=== PATIENT | female | born 1940 | race Caucasian/White ===

== ENCOUNTER 2024-01-26 09:03 | Day surgery (SDC) | payer MEDICARE, BC, SELFPAY ==
[2024-01-26] VITALS (21 sets, daily range): BP systolic 16–192; BP diastolic 50–119; BMI 27.8
[2024-01-26 09:47] LABS: Hematocrit 38.3 % (37.0-47.0); Hemoglobin 12.3 g/dL (12.0-16.0); Mean Corp Hgb Conc. 32.1 g/dL (33.0-37.0); Mean Corpuscular Hgb 28.9 pg (27.0-31.0); Mean Corpuscular Volume 90.1 fL (81.0-99.0); Mean Platelet Volume 11.5 fL (7.4-10.4); Platelet Count 183 10^3/uL (130-400); Red Blood Cell Count 4.25 10^6/uL (4.20-5.40); Red Cell Dist. Width 12.9 % (11.5-14.5); White Blood Cell Count 7.1 10^3/uL (4.8-10.8)
[2024-01-26 09:53] LABS: Blood Urea Nitrogen 15 mg/dl (7-17); Calcium 9.7 mg/dl (8.4-10.2); Carbon Dioxide 30 mmol/L (22-30); Chloride 103 mmol/L (98-107); Estimated Creatinine Clearance 59 ml/min; Glucose 100 mg/dl (70-99); Potassium 4.1 mmol/L (3.5-5.1); Sodium 143 mmol/L (135-145); eGFR > 60.00
[2024-01-26 09:57] LABS: INR 1.12; PT 14.2 Sec (11.4-14.6)
[2024-01-26 09:58] LABS: APTT 29.2 Sec (23.4-35.0)
--- NOTE | 2024-01-26 10:08 | W.SUR.PREOP ---
Pre-Operative Surgical Note
-
I have examined this patient prior to the performance of the scheduled procedure.
The patient's condition is unchanged from the time of the current History and
Physical and the patient is able to undergo the scheduled procedure.
[2024-01-26] MEDS: NSS 220 ML IV (10:13)
--- NOTE | 2024-01-26 11:31 | W.SUR.POST ---
Surgical Immediate Post Op
Note
Pre Op Diagnosis: PAD
Post Op Diagnosis: Same
Procedure Performed: Left lower extremity arteriogram, popliteal artery stenting x 2, long segment balloon angioplasty posterior tibial
Primary Surgeon: Damian
Anesthesia: Local and sedation
Estimated Blood Loss: Less than 2 cc
Fluids: See anesthesia flowsheet
Drains/Shunts: None
Specimens/Cultures: None
Doppler/Duplex/Angio (Y/N): Y
Complications: None
Operative Findings: Severe popliteal stenosis x 2 and posterior tibial artery segmental occlusion
[2024-01-26] MEDS: NSS 1000 IV (12:22)
[2024-01-26] MEDS: PLAVIX 300 MG PO (13:06)
--- NOTE | 2024-01-26 13:24 | OR.RPT ---
Operative Report
Operative Report
PROCEDURE DATE: 01/26/2024
Preoperative diagnosis: Ischemic rest pain left foot
Postoperative diagnosis: Same
Procedure:
1. Duplex assisted right common femoral artery cannulation.
2. Aortogram and pelvic angiogram.
3. Left lower extremity arteriogram with third order vessel catheterization of left posterior tibial artery via right common femoral artery puncture.
4. Balloon angioplasty and stent placement of left superficial femoral and popliteal artery artery severe stenoses (1 in distal SFA, 1 and above-knee popliteal artery), using NextPage Zilver PTX 5 mm x 6 cm and a 5 mm x 4 mm stents.
5. Balloon angioplasty of long segment segmentally occluded/severely stenotic posterior tibial artery with 2.5 mm angioplasty balloon.
6. Right femoral angiogram and Perclose percutaneous closure right common femoral artery.
7. Supervision and interpretation.
Surgeon: Damian
Income Tax Expert: None
Complications: None
Anesthesia: Local, sedation
Fluoroscopy:
13.7 min
62 mGy
17.97 Gy.cm2
Indications for procedure:
Ischemic rest pain left foot. Brought for angiography. Risk/benefits/alternatives all fully discussed. Patient understood all wish to proceed.
Description of procedure:
Patient was identified, brought to the operating room. Placed on the table in the supine position. After the adequate administration of anesthesia, the patient was prepped and draped in the standard surgical fashion. A standard preoperative
timeout was undertaken and everybody was in agreement with the plan.
The right common femoral artery was accessed with a micropuncture kit under direct duplex ultrasound guidance. A 5 [place] sheath was then advanced over a 0.035 inch wire, and a hurst's hook catheter was advanced into the abdominal aorta.
Aortogram and pelvic angiogram was obtained. Findings as follows:
Infrarenal aorta: Patent distal infrarenal aorta with moderate atherosclerotic plaque but no significant stenosis.
Right common iliac artery: Patent with moderate eccentric atherosclerotic plaque but no significant stenosis.
Right external iliac artery: Patent with no significant stenosis.
Left common iliac artery: Patent with moderate eccentric calcified plaque but no significant stenosis. Mild ectasia in the distal common iliac artery.
Left external iliac artery: Patent with no significant stenosis.
Using a floppy angled hydrophilic wire, the left common femoral artery was cannulated and the catheter was advanced. Left lower extremity arteriogram was obtained. Findings as follows:
Common femoral artery: Patent with no significant stenosis.
Profunda femoris artery: Patent with no significant stenosis.
Superficial femoral artery: Patent with some luminal irregularities but no severe stenosis until the very distalmost SFA at the transition with the popliteal artery there was a severe string-like stenosis focally..
Popliteal artery: Beyond the distal SFA/proximal popliteal artery stenosis there was then an additional stenosis in the very distal above-knee popliteal artery with collateralization noted around it. It was a string-like stenosis. Imaging the
behind the knee popliteal artery proved to be very challenging due to the knee prosthetic. However in my best imaging I did not see any other stenosis. The below-knee popliteal artery was patent, slightly diminutive in size with some luminal
irregularity but no severe high-grade stenosis.
As far as the runoff, the anterior tibial artery was essentially occluded a few centimeters beyond its origin with no discernible reconstitution. Tibioperoneal trunk and peroneal artery appeared patent and the peroneal artery appeared to be the
dominant runoff vessel. The posterior tibial artery appeared proximally occluded and then segmental reconstitution throughout its course through the two thirds with areas of severe stenosis as well. Just above the ankle there was reconstitution of
the main posterior tibial artery giving rise to one of the plantar is on the foot.
At this point I selectively cannulated the superficial femoral artery and then exchanged for a Storq wire and an up and over 6 [place] sheath. The patient was given an appropriate dose of heparin. Next under roadmap assisted guidance with a
flopping of hydrophilic wire and a CXI catheter I was able to traverse the distal SFA and popliteal artery stenosis. I gained wire access into the posterior tibial artery below the knee. I then exchanged for a Storq wire and initially elected to
primarily stent to the distal SFA and above-knee popliteal artery stenoses. However the stent would not pass. Therefore I then exchanged out for a 4 mm angioplasty balloon and ballooned both of those stenoses with a 4 mm balloon. Next, I advanced
my 5 mm x 6 cm Zilver PTX (NextPage) stent to the above-knee popliteal artery the more distal stenosis. I then deployed this in the standard fashion. I then exchanged for a 5 mm x 4 cm stent (Cook Zilver PTX) which I deployed across the distal SFA
stenosis. I post angioplastied the stents with 5 mm angioplasty balloons. Completion angiogram demonstrated excellent result with complete resolution of stenosis and now much brisker flow into the runoff. Now I exchanged in the posterior tibial
artery for a Glidewire and a CXI catheter. I was able to pass my Glidewire into the distal posterior tibial artery, but could not advance my catheter into the very distal posterior tibial artery where the flow lumen had reconstituted to more
normal. However, I removed the Glidewire and then was able to use a 0.014 inch RETAIL BEAUT[employer]IST wire which passed right through into the distal PT. Next over this wire I used a 2.5 mm x 20 cm long angioplasty balloon and performed a couple overlapping
inflations of long segment posterior tibial artery. Completion angiogram now demonstrated an excellent result with complete resolution of any posterior tibial artery stenosis. There is brisk flow now as well to the foot. At this point is very
satisfied. I then withdrew my sheath to the right external iliac artery. Angiogram demonstrated good puncture in the right common femoral artery. At this point is very satisfied. I used a Perclose percutaneous suture to close the common femoral
artery. Hemostasis was fully achieved in the groin after manual pressure was also gently applied. The patient tolerated the procedure well. Upon completion she had a palpable left posterior tibial pulse at the ankle.
[2024-01-26] MEDS: COREG 25 MG PO (14:57)
[2024-01-26] MEDS: APRESOLINE 5 MG IV (16:14)
== END 2024-01-26 16:49 | disposition home or self-care (01) ==
LOC: CATH 09:03
PROVIDERS: ATTENDING PHYSICIAN Surgery Vascular Surgery; FAMILY PHYSICIAN Internal Medicine; OTHER PHYSICIAN Internal Medicine Cardiovascular Disease
DX: I70.222 Atherosclerosis of native arteries of extremities with rest pain, left leg (principal); I50.22 Chronic systolic (congestive) heart failure; I25.10 Atherosclerotic heart disease of native coronary artery without angina pectoris; E78.5 Hyperlipidemia, unspecified; Z86.73 Personal history of transient ischemic attack (TIA), and cerebral infarction without residual deficits
CPT/HCPCS: 37226; 37228; 75625; 75716; 76937; 80048; 85027; 85610; 85730; 86850; 86900; 86901; C1725; C1760; C1769; C1874; C1887; C1894; Q9967

== ENCOUNTER → 2024-02-25 09:09 | Outpatient (REF) | payer MEDICARE, BC, SELFPAY | LOC: RAD 09:09 | PROVIDERS: ATTENDING PHYSICIAN Surgery Vascular Surgery; FAMILY PHYSICIAN Internal Medicine | DX: I73.9 Peripheral vascular disease, unspecified (principal) | CPT/HCPCS: 93922; 93925 ==

== ENCOUNTER → 2024-03-02 14:26 | Outpatient (REF) | payer MEDICARE, BC, SELFPAY | LOC: HWRAD 14:26 | PROVIDERS: ATTENDING PHYSICIAN Registered Nurse; FAMILY PHYSICIAN Internal Medicine | DX: I73.9 Peripheral vascular disease, unspecified (principal) | CPT/HCPCS: 74174; Q9967 ==

== ENCOUNTER → 2024-05-24 10:26 | Outpatient (REF) | payer MEDICARE, BC, SELFPAY ==
[2024-05-24 15:51] LABS: % Basophils 0.5 % (0-2); % Eosinophils 3.2 % (0-6); % Immature Granulocytes 0.3 % (0-0.5); % Lymphocytes 18.9 % (20.5-51.1); % Monocytes 8.2 % (1.7-9.3); % Neutrophils 68.9 % (42.2-75.2); Absolute Eosinophils 0.2 10^3/uL (0-0.7); Absolute Lymphocytes 1.4 10^3/uL (1.2-3.4); Absolute Monocytes 0.6 10^3/uL (0.1-0.6); Absolute Neutrophils 5.1 10^3/uL (1.4-6.5); Hematocrit 38.3 % (37.0-47.0); Hemoglobin 12.1 g/dL (12.0-16.0); Mean Corp Hgb Conc. 31.6 g/dL (33.0-37.0); Mean Corpuscular Hgb 29.7 pg (27.0-31.0); Mean Corpuscular Volume 93.9 fL (81.0-99.0); Mean Platelet Volume 11.6 fL (7.4-10.4); Nucleated Red Blood Cells % 0 %; Platelet Count 196 10^3/uL (130-400); Red Blood Cell Count 4.08 10^6/uL (4.20-5.40); Red Cell Dist. Width 12.9 % (11.5-14.5); White Blood Cell Count 7.4 10^3/uL (4.8-10.8)
[2024-05-24 15:53] LABS: ALT (SGPT) 11 U/L (0-35); AST (SGOT) 22 U/L (14-36); Albumin 4.1 g/dl (3.5-5.0); Alkaline Phosphatase 54 U/L (38-126); Blood Urea Nitrogen 20 mg/dl (7-17); Calcium 9.5 mg/dl (8.4-10.2); Carbon Dioxide 30 mmol/L (22-30); Chloride 101 mmol/L (98-107); Glucose 95 mg/dl (70-99); HDL Cholesterol 52 mg/dl; Iron 75 ug/dl (37-170); LDL Cholesterol, Calculated 98 mg/dl; Potassium 4.2 mmol/L (3.5-5.1); Sodium 138 mmol/L (135-145); Total Bilirubin 0.8 mg/dl (0.2-1.3); Total Cholesterol 171 mg/dl (50-199); Total Protein 6.4 g/dl (6.3-8.2); Triglyceride 108 mg/dl (10-149); Very Low Density Lipoprotein 21 mg/dl (0-30); eGFR > 60.00
[2024-05-24 16:02] LABS: Percent Saturation 25 % (20-50); Total Iron Binding Capacity 293 ug/dl (265-497)
[2024-05-24 16:09] LABS: Vitamin D, 25-OH*** 21.7 ng/mL (30-80)
[2024-05-24 16:27] LABS: Ferritin 46.5 ng/ml (11.1-264.0)
== END ==
LOC: HWWDC 10:26
PROVIDERS: ATTENDING PHYSICIAN Internal Medicine
DX: E61.1 Iron deficiency (principal); E78.5 Hyperlipidemia, unspecified; E55.9 Vitamin D deficiency, unspecified; Z13.820 Encounter for screening for osteoporosis; Z78.0 Asymptomatic menopausal state; I25.10 Atherosclerotic heart disease of native coronary artery without angina pectoris
CPT/HCPCS: 36415; 77063; 77067; 77080; 80053; 80061; 82306; 82728; 83540; 83550; 85025; 86141

== ENCOUNTER → 2024-06-11 12:54 | Outpatient (REF) | payer MEDICARE, BC, SELFPAY | LOC: RAD 12:54 | PROVIDERS: ATTENDING PHYSICIAN Surgery Vascular Surgery; FAMILY PHYSICIAN Internal Medicine | DX: I73.9 Peripheral vascular disease, unspecified (principal); R60.0 Localized edema | CPT/HCPCS: 93922; 93925; 93971 ==

== ENCOUNTER 2024-06-25 06:12 | Inpatient (IN) | payer MEDICARE, BC, SELFPAY ==
[2024-06-21 10:21] VITALS: BMI 28.9
[2024-06-21 10:51] LABS: % Basophils 0.5 % (0-2); % Eosinophils 4.7 % (0-6); % Immature Granulocytes 0.5 % (0-0.5); % Monocytes 8.8 % (1.7-9.3); % Neutrophils 71.5 % (42.2-75.2); Absolute Eosinophils 0.3 10^3/uL (0-0.7); Absolute Lymphocytes 0.9 10^3/uL (1.2-3.4); Absolute Monocytes 0.5 10^3/uL (0.1-0.6); Absolute Neutrophils 4.4 10^3/uL (1.4-6.5); Hematocrit 34.9 % (37.0-47.0); Hemoglobin 11.2 g/dL (12.0-16.0); Mean Corp Hgb Conc. 32.1 g/dL (33.0-37.0); Mean Corpuscular Hgb 30.1 pg (27.0-31.0); Mean Corpuscular Volume 93.8 fL (81.0-99.0); Mean Platelet Volume 10.9 fL (7.4-10.4); Nucleated Red Blood Cells % 0 %; Platelet Count 164 10^3/uL (130-400); Red Blood Cell Count 3.72 10^6/uL (4.20-5.40); Red Cell Dist. Width 12.8 % (11.5-14.5); White Blood Cell Count 6.1 10^3/uL (4.8-10.8)
[2024-06-21 11:05] LABS: INR 1.02; PT 13.7 Sec (11.4-14.6)
[2024-06-21 12:12] LABS: Blood Urea Nitrogen 20 mg/dl (7-17); Calcium 9.2 mg/dl (8.4-10.2); Carbon Dioxide 27 mmol/L (22-30); Chloride 101 mmol/L (98-107); Estimated Creatinine Clearance 52 ml/min; Glucose 94 mg/dl (70-99); Potassium 4.4 mmol/L (3.5-5.1); Sodium 137 mmol/L (135-145); eGFR > 60.00
[2024-06-25] VITALS (31 sets, daily range): BP systolic 110–183; BP diastolic 51–103; BMI 29.2
[2024-06-25] MEDS: PERIDEX 0.12% ORAL RINSE 15 ML PO (06:46)
[2024-06-25] MEDS: BACTROBAN NASAL 1 GRAM NASAL (06:46)
[2024-06-25] MEDS: NSS 500 IV (06:46)
--- NOTE | 2024-06-25 09:46 | W.SUR.POST ---
Surgical Immediate Post Op
Note
Pre Op Diagnosis: PAD
Post Op Diagnosis: Same
Procedure Performed: Right femoral endarterectomy with saphenous vein patch
Primary Surgeon: Damian
Travel Pt: Elan BAER
Anesthesia: General
Estimated Blood Loss: 15 cc
Fluids: See anesthesia flowsheet
Drains/Shunts: None
Specimens/Cultures: Right femoral with left
Doppler/Duplex/Angio (Y/N): Y
Complications: None
Operative Findings: +1 DP and PT pulses
--- NOTE | 2024-06-25 10:30 | OR.RPT ---
Operative Report
Operative Report
PROCEDURE DATE: 06/25/2024
Preoperative diagnosis: Critical limb ischemia right lower extremity with severe ischemic rest pain, severe claudication.
Postoperative diagnosis: Same
Procedure: Right femoral endarterectomy with saphenous vein patch angioplasty.
Surgeon: Damian
Didactic Instructor: RISA Ansari, required for all aspects of procedure including assistance with traction/countertraction, following of suture line, assistance with closure.
Complications: None
Anesthesia: General
Indications for procedure:
Patient had prior undergone left lower extremity arteriogram for ischemic rest pain of the left foot. Perclose percutaneous suture closure was performed the right common femoral artery. When seen back in the office postoperative duplex that
demonstrated significant right common femoral artery stenosis. Initially she was asymptomatic, however this progressed. CT angiogram confirmed the stenosis. Focally there was a severe stenosis in the common femoral artery. Patient had developed
significant symptoms of ischemic rest pain. Therefore was brought for femoral endarterectomy. Risk/benefits/alternatives were also discussed. Patient understood all wished to proceed.
Description of procedure:
Patient was identified brought to the operating room placed on the table in supine position. After the adequate administration of anesthesia she was prepped and draped in the standard surgical fashion. A standard preoperative timeout was
undertaken and everybody was in agreement the plan. A transverse incision/oblique incision was made in the right groin (I elected to perform oblique incision rather than longitudinal given the focal nature of the common femoral issue). This was
carried through skin subcutaneous tissue. Any lymphatic crossing vessels with luis tissue was ligated between silk ties and divided. Identified the inguinal ligament and then carefully dissected the common femoral artery as it emerged from
underneath inguinal ligament. It was noted to be soft here and I carefully circumferentially dissected and passed a vessel loop around it. I then continued dissection down the common femoral artery. I could identify where the prior percutaneous
suture cinched down to the artery as there was heaped up scar tissue on the anterior lateral wall of the artery at that juncture. I continued to dissect distally on the artery until I got to the bifurcation (retractors were used to be able to
identify the bifurcation). I then carefully circumferentially dissected the SFA, and circumferentially dissected the profunda using exclusion technique. Vesseloops were passed around these which were double looped but not yet tightened. Now that
I had proximal and distal control, I then elected to isolate a segment of greater saphenous vein so as to use for a patch. A longitudinal incision was made in the proximal medial calf separately. This was carried through the skin and the patient's
tissue. Identified the greater saphenous vein and carefully dissected a suitable segment of approximately 6 to 8 cm, mobilizing it out of its bed. No branches were noted in that vicinity. Now, I gave the patient an appropriate dose of heparin
(approximately 100 units/kg). Now I clamped the proximal common femoral artery (of note there is a good pulsation there and it was soft. This was done with a Derra clamp. I then tightened my double Vesseloops on the SFA and profunda. I now
completely dissected the scarred in area where the percutaneous suture cinched the prior arterial closure site. There was a branch in that vicinity which was clipped and divided. Now I made an arteriotomy in the distal common femoral artery with
an 11 blade and extended approximately using a Vega scissor. I noted at the site of the percutaneous suture, there was heaped up thickened fibrotic tissue that nearly occluded the vessel or focally did occluded. There was no active acute thrombus
or clot. There was not a clear-cut problem with this suture grabbing the posterior wall. It was a little bit unclear what resulted in this thickened fibrotic reaction here. But perhaps a localized dissection then fibrosed over time. Regardless
at this point, I used a [place] to endarterectomized segment and locally endarterectomized out this thickened intima/fibrotic tissue. I was able to achieve clean endpoints proximally and distally. Satisfied with the endarterectomy and the endpoints
as well as the vessel lumen now, I now turned my attention to the saphenous vein again. I ligated approximately distally with heavy silk ties and clips. I transected approximately distally. I then filleted it. I then used it as a patch and sewed
a patch angioplasty using a running 5-0 Prolene suture. Prior to completing and tying down my suture line I backbled the soboba artery. I then completed and tied down my suture line after instilling heparinized saline. I then released flow in the
soboba arteries by releasing my clamps and Vesseloops. There is now excellent pulsatile flow in all 3 vessels (common femoral, profunda, SFA) and this was confirmed with Doppler. At this point is very satisfied. Both incision sites were irrigated
and full hemostasis was achieved. Protamine was given to reverse the heparin. I again examined the patch angioplasty site and it was noted to be fully hemostatic. At this point I satisfied. The oblique incision (arterial exposure site) was
closed in layers with 2-0 Vicryl to reapproximate the femoral sheath layer followed by Michel's fascia 2-0 running Vicryl suture layer. We then used 3-0 Vicryl deep dermal followed by 4 Monocryl subcuticular stitch. The greater saphenous vein
exposure site was similarly closed with a deeper layer of running 2-0 Vicryl suture followed by 3-0 Vicryl deep dermal layer followed by 4 Monocryl subcuticular stitch. Dermabond was applied. Dressings were applied. The patient tolerated
procedure well. She had an excellent dopplerable posterior tibial signal upon completion.
[2024-06-25 10:44] LABS: Hematocrit 33.7 % (37.0-47.0); Hemoglobin 10.9 g/dL (12.0-16.0); Mean Corp Hgb Conc. 32.3 g/dL (33.0-37.0); Mean Corpuscular Hgb 29.8 pg (27.0-31.0); Mean Corpuscular Volume 92.1 fL (81.0-99.0); Mean Platelet Volume 11.3 fL (7.4-10.4); Platelet Count 148 10^3/uL (130-400); Red Blood Cell Count 3.66 10^6/uL (4.20-5.40); Red Cell Dist. Width 12.6 % (11.5-14.5); White Blood Cell Count 5.4 10^3/uL (4.8-10.8)
[2024-06-25 10:49] LABS: INR 1.14; PT 14.9 Sec (11.4-14.6)
[2024-06-25 10:50] LABS: APTT 30.4 Sec (23.4-35.0)
[2024-06-25] MEDS: DILAUDID 0.25 MG IV (10:52)
[2024-06-25 10:58] LABS: Blood Urea Nitrogen 17 mg/dl (7-17); Calcium 8.5 mg/dl (8.4-10.2); Carbon Dioxide 28 mmol/L (22-30); Chloride 104 mmol/L (98-107); Estimated Creatinine Clearance 58 ml/min; Glucose 111 mg/dl (70-99); Potassium 3.6 mmol/L (3.5-5.1); Sodium 139 mmol/L (135-145); eGFR > 60.00
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
[2024-06-25] MEDS: NSS 1000 IV (12:01)
[2024-06-25] MEDS: ROXICODONE 5 MG PO ×2 (12:24→22:28)
--- NOTE | 2024-06-25 13:00 | PTCARENOTE ---
Received pt from PACU via bed.Pt is awake,alert.Conversation is appropriate.+ORTEGA.c/o back pain and right groin surgical site pain.Bedrest maintained as ordered.SR with occasional PVC noted.Right radial Melodie intact,zeroed and maintained at mid
axillary.NIBP used for parameters as per IMPROVEMENT MANAGER.IVF infusing as ordered. O2 2l NC.POX 97%Lungs CTA.POX 88% on RA.Appetite good.No BM.Gibbs draining straw colored urine.Right groin and thigh dressings intact without drainage.Pt's daughter at
bedside.Plan of care discussed.
--- NOTE | 2024-06-25 15:51 | W.[place]-PDMP ---
[place]PD[place]
-
Checked the [place]- Pres[place] Drug [place] website, no red flags identified; safe to proceed with prescription.
Per the PDMP patient picked up 10 days worth of oxycodone 9 days ago.
Additionally I sent 7 tablets of oxycodone for postoperative pain management
--- NOTE | 2024-06-25 16:00 | PTCARENOTE ---
Pt assessed.No change in assessment noted.
--- NOTE | 2024-06-25 19:27 | PTCARENOTE ---
Report given to oncoming RN.Pulse assessment completed in tandem.
[2024-06-25] MEDS: COREG 25 MG PO (20:03)
[2024-06-25] MEDS: CARDENE 200 IV (20:43)
--- NOTE | 2024-06-25 21:12 | PTCARENOTE ---
Assumed care of pt. approx 1900.
Pt. resting in bed offering no complaints at this time.
Pulse checks completed with Day team, all intact via signal.
Arterial line zero'd/calibrated, correlating within 10 pts. w. NIBP.
- elevated BP, TT notified Dr. Sunita quinteros vascular team of findings, deferred BP management to ICU team. ICU DAVID notified of findings, and Cardene gtt started with a parameter goal of less then 160.
[2024-06-25] MEDS: LIPITOR 10 MG PO (22:28)
--- NOTE | 2024-06-25 23:39 | PTCARENOTE ---
Cardene titrated off, no further changes in patient assessment.
[2024-06-26] VITALS (10 sets, daily range): BP systolic 144–169; BP diastolic 46–62; BMI 29.3
[2024-06-26] MEDS: MORPHINE SULFATE 2 MG IV (03:50)
[2024-06-26] MEDS: NSS 1000 IV (03:51)
[2024-06-26 03:52] LABS: Hematocrit 29.9 % (37.0-47.0); Mean Corp Hgb Conc. 33.4 g/dL (33.0-37.0); Mean Corpuscular Hgb 30.3 pg (27.0-31.0); Mean Corpuscular Volume 90.6 fL (81.0-99.0); Mean Platelet Volume 11.2 fL (7.4-10.4); Platelet Count 167 10^3/uL (130-400); Red Cell Dist. Width 12.2 % (11.5-14.5); White Blood Cell Count 8.6 10^3/uL (4.8-10.8)
--- NOTE | 2024-06-26 03:59 | PTCARENOTE ---
pt. remains off cardene sbp remaining 160 or less.
IV infiltration of NSS. Extrem elevated, pharmacy and ICU DAVID notified.
Site has no redness, cool to touch, rough 1 inch of palpable edema present.
[2024-06-26 04:06] LABS: Blood Urea Nitrogen 19 mg/dl (7-17); Calcium 8.3 mg/dl (8.4-10.2); Carbon Dioxide 26 mmol/L (22-30); Chloride 107 mmol/L (98-107); Estimated Creatinine Clearance 68 ml/min; Glucose 124 mg/dl (70-99); INR 1.15; Potassium 4.1 mmol/L (3.5-5.1); Sodium 137 mmol/L (135-145); eGFR > 60.00
[2024-06-26 04:07] LABS: APTT 28.5 Sec (23.4-35.0)
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
--- NOTE | 2024-06-26 07:50 | PTCARENOTE ---
Assumed care 0700. patient in bed. AAO x3. Denies pain. Rt Radial A/line BP 141/47; SR 64; 12; 93Ra. Pedal pulses check and present by dopple. Indwelling manuel draining clear yellow urine. call agarwal within reach. HOB elevated
--- NOTE | 2024-06-26 07:56 | W.PN.VS ---
Today's Communication / Plan
-
.
Assessment/Plan
-
POD 1 s/p FEA
-Ok for OOB
-Ok for regular diet
-Wean cardene gtt per ICU team
-Keep heel floating while laying in bed
-once gtt off, ok to d/c home from vascular standpoint if pateint desires
Subjective Data
-
Date of Service: June 26, 2024
No acute events. Patient states her right leg feels better, but only her heel hurts her putting pressure laying on it.
Objective Data
-
Vital Signs
Temp Pulse Resp BP Pulse Ox
97.7 F 57 12 152/54 94
06/26/24 03:45 06/26/24 05:00 06/26/24 05:00 06/26/24 05:00 06/26/24 05:00
Intake and Output
06/25/24 06/26/24 06/27/24
06:59 06:59 06:59
Intake Total 1730.0 / 1730.0
Output Total 3380 / 3380
Balance -1650.0 / -1650.0
Intake:
Oral fluids 60 / 60
IV fluids (Total) 1670.0 / 1670.0
Cardene 50.0 / 50.0
normal saline 1620 / 1620
Output:
Urine, Gibbs 3380 / 3380
Lab Results
06/26/24 03:40
06/26/24 03:40
Calcium 8.3 mg/dl (8.4-10.2) L 06/26/24 03:40
Physical Exam
-
NAD
+DP/PT signals
Incisions c/d/i
No wounds on heel
[2024-06-26] MEDS: FEOSOL 325 MG PO (07:58)
[2024-06-26] MEDS: COREG 25 MG PO (07:59)
[2024-06-26] MEDS: ASPIR LOW (ENTERIC COATED) 81 MG PO (07:59)
[2024-06-26] MEDS: PLAVIX 75 MG PO (08:00)
[2024-06-26] MEDS: VITAMIN D3 (cholecalciferol) 50 MCG PO (08:00)
[2024-06-26] MEDS: HEPARIN 5000 UNITS SC (08:00)
[2024-06-26] MEDS: ROXICODONE 5 MG PO (08:09)
--- NOTE | 2024-06-26 11:05 | CHAP ---
Ms. Mitchell greeted me with a rajesh smile and bright spirit. She has a positive outlook. Emotional and spiritual support provided.
--- NOTE | 2024-06-26 11:29 | PTCARENOTE ---
0800 A-line removed Gibbs removed pt able to void. Ambulates with no assistance with walker around unit x 2 Roxicodone adm prn pain with pain improvement. pt on RA
--- NOTE | 2024-06-26 14:18 | PTCARENOTE ---
Patient discharge to home. Discharge instructions provided to patient and her daughter. Patient verbalized full understanding discharge instructions and follow-up appointment with vascular surgeon and PCP . Patient's daughter provide transportation
home .
== END 2024-06-26 14:24 | disposition home or self-care (01) | DRG 253 ==
LOC: ICU 06:12
PROVIDERS: Nurse Practitioner Acute Care; ADMITTING PHYSICIAN Surgery Vascular Surgery; CONSULT PHYSICIAN Internal Medicine Critical Care Medicine; PRIMARYCARE PHYSICIAN Internal Medicine
PROC: 04UK07Z Supplement Right Femoral Artery with Autologous Tissue Substitute, Open Approach (ICD-10-PCS; 2024-06-25)
PROC: 06BP0ZZ Excision of Right Saphenous Vein, Open Approach (ICD-10-PCS; 2024-06-25)
PROC: 04CK0ZZ Extirpation of Matter from Right Femoral Artery, Open Approach (ICD-10-PCS; 2024-06-25)
DX: I70.221 Atherosclerosis of native arteries of extremities with rest pain, right leg (principal); I42.8 Other cardiomyopathies; I50.22 Chronic systolic (congestive) heart failure; Z79.82 Long term (current) use of aspirin; E66.9 Obesity, unspecified; Z68.29 Body mass index [BMI] 29.0-29.9, adult; I25.10 Atherosclerotic heart disease of native coronary artery without angina pectoris; K21.9 Gastro-esophageal reflux disease without esophagitis; Z86.73 Personal history of transient ischemic attack (TIA), and cerebral infarction without residual deficits; Z96.659 Presence of unspecified artificial knee joint; Z96.649 Presence of unspecified artificial hip joint; Z90.710 Acquired absence of both cervix and uterus; Z80.3 Family history of malignant neoplasm of breast; Z80.0 Family history of malignant neoplasm of digestive organs; Z82.5 Family history of asthma and other chronic lower respiratory diseases; Z83.3 Family history of diabetes mellitus; Z80.8 Family history of malignant neoplasm of other organs or systems; D64.9 Anemia, unspecified; R73.9 Hyperglycemia, unspecified; E78.5 Hyperlipidemia, unspecified; Z86.0100 Personal history of colon polyps, unspecified
CPT/HCPCS: 88304; 88311; 35371; 36415; 71046; 80048; 85025; 85027; 85610; 85730; 86850; 86900; 86901; 93005

== ENCOUNTER 2024-06-29 22:59 | Emergency (ER) | payer MEDICARE, BC, SELFPAY ==
[2024-06-29 23:13] VITALS: BP 193/77
--- NOTE | 2024-06-29 23:44 | ED.GENMED ---
History of Present Illness
General
Chief Complaint: Post Operative Problem(s)
Source: patient
Time Seen by Provider: 06/29/24 23:23
Nursing documentation reviewed up to this point in time: agreed with
History of Present Illness
History of Present Illness:
This a pleasant 83-year-old female presents with right leg swelling and some numbness. Patient had a femoral endarterectomy on Friday by Dr. Aries Salgado. She states that the healing process has been going smoothly. She reports that today the leg
swelled up and she developed some numbness.
Vital signs are stable. Patient not hypoxic
Nursing note reviewed. I agree with nursing documentation up to this point in time.
Home Meds and allergies reviewed.
NUMBER AND COMPLEXITY OF PROBLEMS ADDRESSED AT THE ENCOUNTER
� Chronic conditions affecting care:
� Acute Exacerbation and/or Progression of Chronic Illness:
� Differential Diagnosis includes:
AMOUNT AND/OR COMPLEXITY OF DATA TO BE REVIEWED AND ANALYZED
I performed an independent evaluation of the following and my interpretation is:
EKG:
Pulse Ox: Not Hypoxic
Software Installation Engineer: Sinus Rhythm
CT:
X-rays:
Ultrasound: Ultrasound negative for DVT. There is a small fluid collection in the groin
Laboratory Studies:
Other:
Review of other/old records:
Clinical information was obtained by an independent historian:
Prescriptions/Medications Considered but not given:
Further testing considered but not performed:
RISK OF COMPLICATIONS AND/OR MORBIDITY OR MORTALITY OF PATIENT MANAGEMENT
Social determinants of health affecting care: Good Social Support
Discussion with other providers: I spoke with Dr. Atiya Fletcher, vascular surgery who recommended ultrasound and lab work. Pulses are marked.
Escalation of care including admission/observation vs risk of discharge considered: After being observed in the emergency department, patient is
CRITICAL CARE NOTE:
Total Time (exclusive of procedures):
Update:
Past History
Past History
ED Past Medical History: Asthma, COPD, GERD, HTN, Hypercholesterolemia and Other (Peripheral vascular disease, cardiomyopathy)
ED Past Surgical History: Cholecystectomy, Gynecological and Other (Tubal ligation, breast lumpectomy, arthroscopy, hysterectomy, total knee replacement, total hip replacement)
Social History
Tobacco: Non-smoker
Alcohol: None
Drug: None
Living: alone
Employment: Retired
Family History
Family History: Other (Noncontributory)
Phy Exam
Physical Exam
Physical Exam:
Physical Exam
Vital signs and allergy list reviewed and agreed with.
GENERAL: Alert , in minimal apparent distress
EYE: pupils equal, EOMI, anicteric
NECK: Supple, no significant adenopathy. No masses. Trachea midline
ENT: Oropharynx is clear, mmm.
CARDIAC: Regular rate and rhythm . No M/R/G
LUNGS: Clear breath sounds bilaterally, no acute respiratory distress, no wheezes/rales/rhonchi
ABDOMEN: Soft, without focal tenderness, no r/g, no cvat. Normal BSx4q
NEUROLOGICAL: Alert and oriented, no focal neuro deficits
SKIN: Warm and dry, skin intact. 2+ pitting edema
MUSCULOSKELETAL: 2+ edema bilateral lower extremities, well perfused. Pulses marked and dopplered. moves all 4 extremities
PSYCH: Normal and appropriate interaction.
Musculoskeletal Exam
Musculoskeletal Exam: edema
Skin Exam
Skin Exam: normal color, warm/dry and other (OpSite is intact without any evidence of cellulitis or bleeding. No wound dehiscence noted)
Course
Orders/Labs/Results
Orders:
Orders
06/29/24 23:40
US Legs, Right [US Periph Venous LOWER Ext RT] Urgent
Comment:
Reason For Exam: post op swelling
06/29/24 23:42
Complete Blood Count/With Diff Urgent
06/30/24
CT Abd/Pel (IV only)-DH only Urgent
Reason For Exam: rt sided pain
06/30/24 01:39
Comprehensive Metabolic Panel Urgent
Lactic Acid Urgent
Protime/PTT Urgent
Is patient on Coumadin/Warfarin: Unknown
Is the patient on Heparin?: Unknown
Comment: REDRAW
Abnormal Lab Results
06/30/24 06/30/24
00:53 01:39
RBC 3.56 L 10^6/uL
(4.20-5.40)
Hgb 10.8 L g/dL
(12.0-16.0)
Hct 32.9 L %
(37.0-47.0)
MCHC 32.8 L g/dL
(33.0-37.0)
MPV 11.2 H fL
(7.4-10.4)
Absolute Monos (auto) 0.8 H 10^3/uL
(0.1-0.6)
Monocytes % 11.9 H %
(1.7-9.3)
Eosinophils % 6.7 H %
(0-6)
BUN 24 H mg/dl
(7-17)
Glucose 116 H mg/dl
(70-99)
Total Protein 5.7 L g/dl
(6.3-8.2)
Albumin 3.3 L g/dl
(3.5-5.0)
06/30/24 00:53
06/30/24 01:39
Vital Signs
Initial and Last Documented VS:
Initial Vital Signs
Temp Pulse Resp BP Pulse Ox
98.7 F 64 17 193/77 98
06/29/24 23:13 06/29/24 23:13 06/29/24 23:13 06/29/24 23:13 06/29/24 23:13
Last Documented Vital Signs
Temp Pulse Resp BP Pulse Ox
98.7 F 72 19 158/76 95
06/29/24 23:13 06/30/24 03:45 06/30/24 03:45 06/30/24 03:04 06/30/24 03:30
*Critical Care Note
Total Time (30-74mins, 75-104mins- exclusive of procedures): Not Applicable
Update Note
Update Note:
Patient seen by Dr. Fletcher. She recommends discharge to home with increased elevation. Discussed this with family and they are in agreement.
CT ABDOMEN/PELVIS WITH CONTRAST
IMPRESSION:
1. No acute abnormality within the abdomen or pelvis.
2. No bowel obstruction. Status post cholecystectomy. Normal appendix.
3. Postsurgical changes in the right inguinal region likely in the setting of recent vascular surgery. No evidence of active extravasation. Mild surrounding soft tissue swelling and subcutaneous emphysema, favored to represent postsurgical
change. Slightly prominent appearance of the EDUCATIONAL RESOURCE COORDINATOR measuring up to 12 mm., Previously 8 mm, may represent postsurgical appearance, although small aneurysm may appear similarly. No evidence of active extravasation.
Incidentals:
-Diverticulosis without evidence of diverticulitis. Small hiatal hernia
- No obstructive uropathy.
- No hepatic or pancreatic mass.
- No abdominal aortic aneurysm.
- No acute osseous abnormality.
- No acute abnormality within the visualized lungs. Left lower lobe atelectasis
-
Case finalized on Jun 30 2024 3:46AM ET
ED Attending Note
-
Portions of this chart may have been created with voice recognition software.� Occasional wrong word or��sound alike� substitutions may have occurred due to the inherent limitations of voice recognition software.
Discharge Plan
Departure
Patient Disposition: Home (Routine Discharge)
Date of Disposition: 06/30/24
Time of Disposition: 04:01
Patient with high blood pressure during this ER visit?: No
Discharge Problem:
Post-operative complication, Leg swelling
Instructions: Wound Care (DC), Swelling, BLOOD PRESSURE
Prescriptions:
No Action
atorvastatin 10 MG tablet
10 mg PO MOWEFR
aspirin 81 MG tablet,delayed release (DR/EC)
81 mg PO DAILY
carvedilol [Coreg] 25 MG tablet
25 mg PO BID Qty: 60 11RF
Rx Instructions:
Increase Coreg to 25 mg (two 12.5 mg tablets) twice a day
acetaminophen 325 mg Tablet
650 mg PO Q6H PRN (Reason: pain)
ferrous sulfate [iron] 325 mg (65 mg iron) Tablet
325 mg PO DAILY
colestipol 1 gram Tablet
2 g PO BID
cranberry 500 mg Capsule
500 mg PO DAILY
oxycodone 5 mg Tablet
5 mg PO Q8H
cholecalciferol (vitamin D3) [Vitamin D3] 125 mcg (5,000 unit) Tablet
2,000 unit PO TU
coQ10 (ubiquinol) 100 mg Capsule
200 mg PO DAILY
clopidogrel 75 mg Tablet
75 mg PO DAILY Qty: 90 0RF
oxycodone 5 mg Tablet
5 mg PO Q4HPRN PRN (Reason: moderate pain) Qty: 7 0RF
Referrals:
Paulina Patricio MD [Family Provider] -
Aries Salgado MD [Active] -
Activity Restrictions/Additional Instructions:
It was a pleasure meeting you and taking part in your care. We hope for your continued healing and wellness.
Please read discharge instructions in their entirety. However, they are for general education and may not describe your exact diagnosis at discharge. Information on your ER visit and medical conditions were discussed with you along with appropriate
follow up information...
If indicated, please take your medications as instructed and indicated on discharge paperwork.
Please schedule a follow up appointment as directed. Call to schedule an appointment
Please return to the emergency department with ANY change in, persisting, or worsening of symptoms. If any of your symptoms do not improve, or persist, or become more severe within 6-12 hours, please return to the emergency department for further
care.
Please return to the emergency department if you develop a headache, neck pain/stiffness, fever greater than 100.4F, chest pain, shortness of breath, persistent nausea, vomiting, slurred speech, difficulty walking, numbness/tingling, weakness, signs
of infection or any other symptoms that are worrisome to you.
If you have any questions or concerns please do not hesitate to call the Hospital at or E-mail me directly at [email or web address]
Interventions
Interventions:
*Risk Screen - Suicide Last Done: 06/29/24 23:13
*General Assessment Last Done: 06/30/24 00:38
*Neglect/Abuse Screening Last Done: 06/30/24 00:38
ED- Fall Risk Assessment Last Done: 06/30/24 00:36
*ED COVID-19 Vaccine History Last Done: 06/30/24 00:38
*Nursing Disposition Last Done: 06/30/24 04:19
ED-Skin Assessment Last Done: 06/30/24 00:36
Discharge Date and Time
Discharge Date/Time: 06/30/24 04:30
Print Language: PERUVIAN
[2024-06-30 00:35] VITALS: BMI 29.7
[2024-06-30 00:55] VITALS: BP 176/39
[2024-06-30 00:58] VITALS: BP 188/58
[2024-06-30 00:59] LABS: % Basophils 0.5 % (0-2); % Eosinophils 6.7 % (0-6); % Immature Granulocytes 0.3 % (0-0.5); % Monocytes 11.9 % (1.7-9.3); % Neutrophils 59.6 % (42.2-75.2); Absolute Eosinophils 0.4 10^3/uL (0-0.7); Absolute Lymphocytes 1.3 10^3/uL (1.2-3.4); Absolute Monocytes 0.8 10^3/uL (0.1-0.6); Absolute Neutrophils 3.8 10^3/uL (1.4-6.5); Hematocrit 32.9 % (37.0-47.0); Hemoglobin 10.8 g/dL (12.0-16.0); Mean Corp Hgb Conc. 32.8 g/dL (33.0-37.0); Mean Corpuscular Hgb 30.3 pg (27.0-31.0); Mean Corpuscular Volume 92.4 fL (81.0-99.0); Mean Platelet Volume 11.2 fL (7.4-10.4); Nucleated Red Blood Cells % 0 %; Platelet Count 178 10^3/uL (130-400); Red Blood Cell Count 3.56 10^6/uL (4.20-5.40); Red Cell Dist. Width 12.3 % (11.5-14.5); White Blood Cell Count 6.3 10^3/uL (4.8-10.8)
[2024-06-30 01:00] VITALS: BP 188/56
--- NOTE | 2024-06-30 02:38 | DOWNTIME ---
There was a [employer] Client Battery Repairer Downtime on 06/30/2024 from 0100 to 06/30/2023 at 0235 . Downtime documentation of patient's care, including medication administrations, has been reconciled in the electronic record per guidelines. Refer to the
patient's paper chart under the miscellaneous tab to see printed paper medication records and downtime forms.
[2024-06-30 03:04] VITALS: BP 158/76
[2024-06-30 03:07] LABS: APTT 30.5 Sec (23.4-35.0); INR 1.06; PT 14.1 Sec (11.4-14.6)
[2024-06-30 03:15] LABS: ALT (SGPT) 18 U/L (0-35); AST (SGOT) 27 U/L (14-36); Albumin 3.3 g/dl (3.5-5.0); Alkaline Phosphatase 62 U/L (38-126); Blood Urea Nitrogen 24 mg/dl (7-17); Calcium 9.1 mg/dl (8.4-10.2); Carbon Dioxide 27 mmol/L (22-30); Chloride 106 mmol/L (98-107); Estimated Creatinine Clearance 61 ml/min; Glucose 116 mg/dl (70-99); Lactic Acid 0.8 mmol/L (0.7-2.0); Sodium 139 mmol/L (135-145); Total Bilirubin 0.9 mg/dl (0.2-1.3); Total Protein 5.7 g/dl (6.3-8.2); eGFR > 60.00
== END 2024-06-30 04:30 | disposition home or self-care (01) ==
LOC: EMR 22:59
PROVIDERS: EMERGENCY PHYSICIAN Student in an Organized Health Care Education/Training Program; FAMILY PHYSICIAN Internal Medicine
DX: I97.89 Other postprocedural complications and disorders of the circulatory system, not elsewhere classified (principal); R22.41 Localized swelling, mass and lump, right lower limb; Y83.8 Other surgical procedures as the cause of abnormal reaction of the patient, or of later complication, without mention of misadventure at the time of the procedure
CPT/HCPCS: 99285; 74177; 80053; 83605; 85025; 85610; 85730; 93971; Q9967

== ENCOUNTER → 2024-07-16 10:58 | Outpatient (REF) | payer MEDICARE, BC, SELFPAY | LOC: RAD 10:58 | PROVIDERS: ATTENDING PHYSICIAN Registered Nurse; FAMILY PHYSICIAN Internal Medicine | DX: I73.9 Peripheral vascular disease, unspecified (principal) | CPT/HCPCS: 93922; 93925 ==

== ENCOUNTER → 2024-08-11 09:11 | Outpatient (REF) | payer MEDICARE, BC, SELFPAY | LOC: HWRCS 09:11 | PROVIDERS: ATTENDING PHYSICIAN Internal Medicine Cardiovascular Disease; FAMILY PHYSICIAN Internal Medicine | DX: I50.32 Chronic diastolic (congestive) heart failure (principal); I42.8 Other cardiomyopathies; I10 Essential (primary) hypertension; R06.02 Shortness of breath | CPT/HCPCS: 93306 ==

== ENCOUNTER → 2024-08-30 11:50 | Outpatient (REF) | payer MEDICARE, BC, SELFPAY | LOC: HWRCS 11:50 | PROVIDERS: ATTENDING PHYSICIAN Nurse Practitioner; FAMILY PHYSICIAN Internal Medicine | DX: R53.83 Other fatigue (principal); R06.02 Shortness of breath; I73.9 Peripheral vascular disease, unspecified; I42.9 Cardiomyopathy, unspecified | CPT/HCPCS: 78452; 93017; A9500; J2785 ==

== ENCOUNTER → 2024-09-01 11:28 | Outpatient (REF) | payer MEDICARE, BC, SELFPAY ==
[2024-09-01 16:07] LABS: Blood Urea Nitrogen 19 mg/dl (7-17); Calcium 9.5 mg/dl (8.4-10.2); Carbon Dioxide 31 mmol/L (22-30); Chloride 105 mmol/L (98-107); Glucose 102 mg/dl (70-99); Magnesium 2.1 mg/dl (1.6-2.3); Potassium 4.4 mmol/L (3.5-5.1); Sodium 142 mmol/L (135-145); eGFR > 60.00
== END ==
LOC: HWLAB 11:28
PROVIDERS: ATTENDING PHYSICIAN Nurse Practitioner; FAMILY PHYSICIAN Internal Medicine
DX: R53.83 Other fatigue (principal); R06.02 Shortness of breath; I10 Essential (primary) hypertension
CPT/HCPCS: 36415; 80048; 83735

== ENCOUNTER → 2025-02-22 12:39 | Outpatient (REF) | payer MEDICARE, BC, SELFPAY | LOC: RAD 12:39 | PROVIDERS: ATTENDING PHYSICIAN Surgery Vascular Surgery; FAMILY PHYSICIAN Obstetrics & Gynecology Gynecology | DX: I73.9 Peripheral vascular disease, unspecified (principal) | CPT/HCPCS: 93922; 93925 ==

== ENCOUNTER → 2025-03-25 13:13 | Outpatient (REF) | payer MEDICARE, BC, SELFPAY | LOC: RAD 13:13 | PROVIDERS: ATTENDING PHYSICIAN Registered Nurse; FAMILY PHYSICIAN Internal Medicine | DX: M79.89 Other specified soft tissue disorders (principal); R60.0 Localized edema | CPT/HCPCS: 93971 ==